=== PATIENT | male | born 1995 | race Caucasian/White ===

== ENCOUNTER 2016-11-10 10:55 | Emergency (ER) | payer OTHER ==
--- NOTE | 2016-11-10 11:18 | ER Document Report ---
HPI - HPI Patient complains to provider of: STD screening and ring worm Pain Level: Denies Context: 21 yo male presents to ED requesting routine STD testing. pt denies any symptoms presently. pt also c/o rash to trunk x several weeks. + itch Associated Symptoms: None Exacerbated by: Denies Relieved by: Denies Similar symptoms previously: Yes Recently seen / treated by doctor: No - ROS Systems Reviewed and Negative: Yes All other systems reviewed and negative - CARDIOVASCULAR Cardiovascular: DENIES: Chest pain Past Medical History - General Information source: Patient - Social History Smoking Status: Current Some Day Smoker Chew tobacco use (# tins/day): No Frequency of alcohol use: Occasional Drug Abuse: None Lives with: Family Family History: Reviewed & Not Pertinent - Medical History Medical History: Negative Vertical Provider Document - CONSTITUTIONAL Agree With Documented VS: Yes Exam Limitations: No Limitations General Appearance: WD/WN, No Apparent Distress - HEENT HEENT: Atraumatic, PERRLA - NECK Neck: Normal Inspection, Supple - RESPIRATORY Respiratory: Breath Sounds Normal, No Respiratory Distress - CARDIOVASCULAR Cardiovascular: Regular Rate, Regular Rhythm - NEURO Level of Consciousness: Awake, Alert, Appropriate - DERM Integumentary: Rash - annular lesion to left axilla and right hip. slightly raised, central clearing Course - Re-evaluation Re-evalutation: 11/10/16 11:19 explained to patient that routine STD testing is not performed in ED. pt is asymptomatic and no emergent testing is indicated today. pt given address for [facility]. rashis consistent with tinea corporus. will treat with topical antifungal. pt agreeable with plan and stable for discharge Discharge - Discharge Clinical Impression: Concern about STD in male without diagnosis, Tinea corporis Condition: Stable Disposition: HOME, SELF-CARE Instructions: [facility] Department, Topical Antifungal (OM) Additional Instructions: Please follow up with [facility] for STD testing Use antifungal cream as prescribed Prescriptions: Clotrimazole/Betamethasone Dip [Lotrisone Cream] 1 applic TP BID #30 g Referrals: [facility]PT,[facility] [NO LOCAL MD] - Follow up as needed
[2016-11-10 11:32] VITALS: BP 141/75
== END 2016-11-10 11:32 | disposition home or self-care (01) ==
LOC: ER 10:55
DX: B35.4 Tinea corporis (principal); F17.200 Nicotine dependence, unspecified, uncomplicated
CPT/HCPCS: 99283